=== PATIENT | female | born 1950 | race Caucasian/White ===

== ENCOUNTER 2017-10-05 09:30 | Outpatient (RCR) | payer MEDICARE, OTHER ==
[2015-04-25 14:03] VITALS: Wt 53.9 kg
[2017-09-26 09:56] LABS: PLATELET COUNT, AUTOMATED 232 K/uL (150-450)
[~2017-10-05 09:30] MED LIST: ACE3 PO; AMOX-559 PO; CALC600T63 PO; CEFT2VIA53 IV; CHOL200022 PO; ESOM20CA31 PO; ESOM40CA42 PO; IMAT400PT PO; KET10 PO; MULT1TAB64 PO; OMEP2.5S PO; OXYC-865 PO; PREMPRO PO; VITA-175 PO; [UNRECOGNIZED DRUG - CODE] MM
[2017-10-05 09:35] VITALS: BP 125/75
--- NOTE | 2017-10-05 15:01 | ONCOLOGY FOLLOW UP NOTE ---
EVENT DATE: October 05, 2017 DIAGNOSES 1. 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 2. Osteopenia. 3. Gastroesophageal reflux disease (GERD). 4. Peripheral neuropathy. 5. Sjgren syndrome. 6. Plasma cell dyscrasia. CHIEF COMPLAINT The patient is here today for followup of her ileal gastrointestinal stromal tumor and MGUS. ONCOLOGY HISTORY The patient is a 67-year-old woman. PRESENTATION The patient is here for followup. DIAGNOSTIC EVALUATION CT scan abdomen and pelvis done on February 17, 2011 did reveal a 2.7 cm irregular collection of tissue in the inferior aspect of the left breast. There were also three ovoid soft tissue density masses adjacent to the right internal iliac artery. The largest was 3 cm in diameter. There were two uterine fibroids. PROCEDURE Laparoscopic evaluation and biopsy of the right pelvic lymphadenopathy. It turned out to be an open laparotomy with enterectomy with primary anastomosis done on March 01, 2011. During surgery, a tumor was found in the ileocecal junction right in the mesentery of the small bowel. It was adjacent to the ileum. A lymph node was removed and came back negative for lymphoma. PATHOLOGY Positive for a well circumscribed submucosal mass, 3.5 x 3.7 x 3.0 cm in diameter and the pathology was positive for gastrointestinal stromal tumor. C- kit was strongly positive. Ki-67 was less than 5% of tumor cells positive. So the patient had gastrointestinal stromal tumor of the terminal ileum. STAGING PET CT scan done on March 30, 2011 did not show any evidence of local or systemic metastasis. There was a nodule in the thyroid, 8 mm, with standardized uptake value (SUV) of 7. TREATMENT Gleevec 400 mg daily, started on April 01, 2011. HISTORY OF PRESENT ILLNESS Patient is here today for follow-up of her terminal ileal gastrointestinal stromal tumor and MGUS. Patient is doing fine currently. She is complaining of pain in her knees, ankles and feet. She feels that her legs are tight. She has also tingling and numbness in the hands and her feet are also numb. PAST MEDICAL HISTORY 1. Sjgren syndrome, diagnosed recently after biopsy for dry mouth. 2. Anemia. 3. Peripheral neuropathy. 4. Terminal ileal gastrointestinal tumor, diagnosed recently in February of 2011. 5. Osteopenia. 6. Abnormal left mammogram. Patient with history of microcalcification of the left breast in the past. 7. Gastroesophageal reflux disease (GERD). PAST SURGICAL HISTORY 1. Biopsy of the left breast in October of 1988. 2. Exploratory laparotomy and enterectomy with terminal ileal resection done in February of 2011. 3. 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 SOCIAL HISTORY The patient is . She has two sons and one daughter. 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 She has about three drinks per week. Denies any abuse of tobacco or drugs. FAMILY HISTORY Father had lymphoma at the age of 79. Mother had gallbladder cancer at the age of 77. MEDICATIONS 1. Vitamin B complex one tablet daily. 2. Multivitamin one tablet daily. 3. Gleevec 400 mg daily. 4. Nexium 20 mg daily. 5. Prempro 0.625 mg every other day. 6. Prempro 0.425 mg every other day. ALLERGIES No known drug allergies. REVIEW OF SYSTEMS CONSTITUTIONAL: No appetite or weight change. No fever, chills or sweating. No recent infection. HEENT: Ears: No tinnitus or hearing problem. Nose: No nasal discharge or epistaxis. Throat: No sore throat or mouth ulcers. Eyes: No diplopia or visual changes. RESPIRATORY: No shortness of breath. No cough, expectoration or hemoptysis. CARDIOVASCULAR: No chest pain, orthopnea, or paroxysmal nocturnal dyspnea (PND) . No edema. No palpitations. GASTROINTESTINAL: No nausea or vomiting. No diarrhea or constipation. No change in bowel movements. No heartburn or swallowing difficulties. No abdominal pain. No jaundice. No hematemesis, melena or rectal bleeding. GENITOURINARY: No hematuria or dysuria. MUSCULOSKELETAL: She has pain in the knees, ankles and feet. NEUROLOGICAL: She has tingling and numbness in the hands and numbness in the feet. HEMATOLOGIC/LYMPHATIC: She has mild fatigue. No enlarged lymph nodes. SKIN: No skin rash or lumps. PSYCHIATRIC: No anxiety or depression. PHYSICAL EXAMINATION GENERAL: Looks stable. Well-developed, well-nourished, and in no acute distress. VITAL SIGNS: Blood pressure 125/75, pulse 70 per minute, respirations 16 per minute, temperature 97.2, pulse ox 94% on room air. HEENT: Head: Atraumatic. No sinus tenderness to palpation. Eyes: No icterus or conjunctivitis. Mouth and throat: No oral thrush or mucositis. NECK: Supple. No cervical or supraclavicular lymphadenopathy. LUNGS: Clear to auscultation and percussion bilaterally. HEART: Regular rate and rhythm. No gallops, murmurs, clicks or rubs. ABDOMEN: Soft and lax. No tenderness. No hepatosplenomegaly. No masses. EXTREMITIES: No cyanosis, clubbing or edema. LYMPHATICS: No peripheral lymphadenopathy. NEUROLOGICAL: Conscious, alert and oriented times three. No focal motor or sensory deficits. PSYCHIATRIC: Mood and affect appear normal. SKIN: No skin rash, bruise or purpuric eruption. DIAGNOSTIC DATA CBC showed a white count of 4000, hemoglobin 13.5, hematocrit 38.8, platelets 232,000. Chem panel totally normal except AST 40. ASSESSMENT 1. Terminal ileal gastrointestinal stromal tumor status post enterectomy done March 01, 2011. Final pathology was positive for gastrointestinal stromal tumor. CKIT was strongly positive. Ki-67 was less than 5% positive. PET/CT scan done March 30, 2011 did not show any evidence of systemic or local metastasis. Patient started treatment with Gleevec April 01, 2011. She is in complete remission without any symptoms related to her tumor. I am planning to continue followup. I will see her again in six months with CBC and chem panel. In the meantime we will continue to Gleevec 400 mg daily. 2. 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 [place] free light chain is high at 321, which is up from 190. Her lambda free light chain is low at 0.3 with kappa to lambda free light chain ratio 170, which is on the rise. Her IgG is low at 284, IgA is low at 16, IgM is low at 7. Patient received IVIG for her hypogammaglobulinemia. Her serum protein electrophoresis showed a faint band in the kappa, suggestive of specific immune response or an early monoclonal protein. 3. Left thyroid nodule, hot by PET scan. Patient is followed by fish housekeeper. 4. Osteopenia. 5. Gastroesophageal reflux disease, on treatment. 6. Peripheral neuropathy. 7. Sjogren syndrome. PLAN 1. Continue followup. 2. Patient to return in six months with CBC, chem panel, LDH, uric acid, myeloma profile and I will check serum protein immunoelectrophoresis for IgD and IgE. 3. Patient to contact us for any new concerns or complaints. [facility]
== END 2017-10-06 09:58 | disposition home or self-care (01) ==
LOC: ONC 09:30
PROVIDERS: ATTEND Internal Medicine Hematology
DX: C49.A3 Gastrointestinal stromal tumor of small intestine (principal); D47.2 Monoclonal gammopathy; D80.1 Nonfamilial hypogammaglobulinemia; E04.1 Nontoxic single thyroid nodule; M85.80 Other specified disorders of bone density and structure, unspecified site; K21.9 Gastro-esophageal reflux disease without esophagitis; G62.9 Polyneuropathy, unspecified; M35.00 Sjogren syndrome, unspecified
CPT/HCPCS: 36415; 82040; 82232; 82247; 82310; 82374; 82435; 82565; 82947; 83615; 83883; 84075; 84132; 84155; 84295; 84450; 84460; 84520; 84550; 85025; 86334; 99212

== ENCOUNTER → 2018-02-23 | Outpatient (CLI) | payer MEDICARE, OTHER ==
[2015-04-25 14:03] VITALS: BMI 20.1
[~2018-02-23] MED LIST changes: +CHOL200018 PO; -CHOL200022 PO
--- NOTE | 2018-02-24 14:40 | RADIOLOGY IMAGING REPORT ---
FACILITY: [facility] - [place] PATIENT NAME: Abby Moore : 1950 MR: [id number] V: [id number] EXAM DATE: ORDERING PHYSICIAN: SAMUEL MOTA TECHNOLOGIST: Location: [facility] [place] Patient: Abby Moore : 1950 Visit/Account:[id number] Date of Sevice: 02/23/2018 Technique: ANKLE BRACHIAL INDICES HISTORY: Ankle-brachial indices, neuropathy Comparison studies: None FINDINGS: Ankle brachial indices were obtained Brachial artery Right 142 mmHg Left 140 mmHg Right lower extremity: Dorsalis pedis 139 mmHg Posterior tibial artery 124 mmHg Ankle brachial index: 0.98 Left lower extremity: Dorsalis pedis 136 mmHg Posterior tibial artery 135 mmHg Ankle brachial index: 0.96 IMPRESSION: 1. Normal ankle brachial index. Report Dictated By: Ron Cowan DO at 02/24/2018 2:34 PM Report E-Signed By: Ron Cowan DO at 02/24/2018 2:35 PM WSN:[id number]
== END ==
LOC: US 00:27
PROVIDERS: ATTEND Physician Assistant
DX: G60.3 Idiopathic progressive neuropathy (principal)
CPT/HCPCS: 93922

== ENCOUNTER → 2018-03-14 | Outpatient (CLI) | payer MEDICARE, OTHER ==
[2015-04-25 14:03] VITALS: BMI 20.1
--- NOTE | 2018-03-16 08:24 | RADIOLOGY IMAGING REPORT ---
FACILITY: [facility] PATIENT NAME: WU KANG : [id number] MR: [id number] V: [id number] EXAM DATE: ORDERING PHYSICIAN: SAMUEL MOTA TECHNOLOGIST: Iraida Jimenez PROCEDURE:BILATERAL DIGITAL SCREENING MAMMOGRAM WITH CAD ASSISTED INTERPRETATION & 3D TOMOSYNTHESIS COMPARISON:Prior mammograms dated 03/13/17, 10/27/16, 10/12/15, 10/06/14, 10/03/13, 03/07/12 INDICATIONS:screening FINDINGS: Moderately dense fibroglandular tissue is seen throughout the breasts. The parenchymal pattern has remained stable allowing for difference in mammographic technique & patient positioning. There is no evidence of malignant appearing mass, malignant appearing calcification or other secondary sign of malignancy in either breast. DIAGNOSTIC CATEGORY 1--NEGATIVE. RECOMMENDATIONS: ROUTINE MAMMOGRAM AND CLINICAL EVALUATION. IMPRESSION: BIRADS 1: Negative. No significant abnormality is seen. Dictated by: Colette Alvarado M.D. on 03/14/2018 at 16:47 Transcribed by: UNA on 03/16/2018 at 8:16 Approved by: Colette Alvarado M.D. on 03/16/2018 at 8:23 [facility]
== END ==
LOC: MAMO 00:30
PROVIDERS: ATTEND Physician Assistant
DX: Z12.31 Encounter for screening mammogram for malignant neoplasm of breast (principal)
CPT/HCPCS: 77063; 77067

== ENCOUNTER 2018-04-12 15:20 | Outpatient (RCR) | payer MEDICARE, OTHER ==
[2015-04-25 14:03] VITALS: Wt 56.5 kg
[2018-03-26 09:10] VITALS: BP 130/72
[2018-03-26 09:26] LABS: PLATELET COUNT, AUTOMATED 214 K/uL (150-450)
[2018-04-12 15:22] VITALS: BP 148/77
--- NOTE | 2018-04-12 21:51 | [facility] ONCOLOGY NOTE ---
EVENT DATE: April 12, 2018 DIAGNOSES 1. 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 2. Osteopenia. 3. Gastroesophageal reflux disease (GERD). 4. Peripheral neuropathy. 5. Sjgren syndrome. 6. Plasma cell dyscrasia. CHIEF COMPLAINT Patient is here today for followup of her ileal gastrointestinal stromal tumor and MGUS. ONCOLOGY HISTORY The patient is a 68-year-old woman. PRESENTATION The patient is here for followup. DIAGNOSTIC EVALUATION CT scan abdomen and pelvis done on February 17, 2011, did reveal a 2.7 cm irregular collection of tissue in the inferior aspect of the left breast. There were also three ovoid soft tissue density masses adjacent to the right internal iliac artery. The largest was 3 cm in diameter. There were two uterine fibroids. PROCEDURE Laparoscopic evaluation and biopsy of the right pelvic lymphadenopathy. It turned out to be an open laparotomy with enterectomy with primary anastomosis done on March 01, 2011. During surgery, a tumor was found in the ileocecal junction right in the mesentery of the small bowel. It was adjacent to the ileum. A lymph node was removed and came back negative for lymphoma. PATHOLOGY Positive for a well-circumscribed submucosal mass, 3.5 x 3.7 x 3.0 cm in diameter, and the pathology was positive for gastrointestinal stromal tumor. C- Kit was strongly positive. Ki-67 was less than 5% of tumor cells positive. So, the patient had gastrointestinal stromal tumor of the terminal ileum. STAGING PET/CT scan done on March 30, 2011, did not show any evidence of local or systemic metastasis. There was a nodule in the thyroid, 8 mm, with standardized uptake value (SUV) of 7. TREATMENT Gleevec 400 mg daily, started on April 01, 2011. HISTORY OF PRESENT ILLNESS Patient is here today for followup of her terminal ileal gastrointestinal stromal tumor and MGUS. Patient is doing fine currently. She is complaining of some nasal discharge and cough from her recent upper respiratory tract infection. She has some regular aches in her joints for age. She has also some neuropathy and numbness in her fingers. PAST MEDICAL HISTORY 1. Sjgren syndrome, diagnosed after biopsy for dry mouth. 2. Anemia. 3. Peripheral neuropathy. 4. Terminal ileal gastrointestinal tumor, diagnosed in February 2011. 5. Osteopenia. 6. Abnormal left mammogram. Patient with history of microcalcification of the left breast in the past. 7. Gastroesophageal reflux disease (GERD). PAST SURGICAL HISTORY 1. Biopsy of the left breast in October 1988. 2. Exploratory laparotomy and enterectomy with terminal ileal resection done in February 2011. 3. 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 SOCIAL HISTORY The patient is . She has two sons and one daughter. 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 She has about three drinks per week. Denies any abuse of tobacco or drugs. FAMILY HISTORY Father had lymphoma at the age of 79. Mother had gallbladder cancer at the age of 77. MEDICATIONS 1. Vitamin B complex one tablet daily. 2. Multivitamin one tablet daily. 3. Gleevec 400 mg daily. 4. Nexium 20 mg daily. 5. Prempro 0.625 mg every other day. 6. Prempro 0.425 mg every other day. ALLERGIES No known drug allergies. REVIEW OF SYSTEMS CONSTITUTIONAL: No appetite or weight change. No fever, chills, or sweating. No recent infection. HEENT: Ears: No tinnitus or hearing problem. Nose: She has nasal discharge. No epistaxis. Throat: No sore throat or mouth ulcers. Eyes: No diplopia or visual changes. RESPIRATORY: No shortness of breath. She has a dry cough. No expectoration or hemoptysis. CARDIOVASCULAR: No chest pain, orthopnea, or paroxysmal nocturnal dyspnea (PND). No edema. No palpitations. GASTROINTESTINAL: No nausea or vomiting. No diarrhea or constipation. No change in bowel movements. No heartburn or swallowing difficulties. No abdominal pain. No jaundice. No hematemesis, melena, or rectal bleeding. GENITOURINARY: No hematuria or dysuria. MUSCULOSKELETAL: She has joint aches due to age. NEUROLOGICAL: She has numbness in her fingers. No headaches or convulsions. HEMATOLOGIC/LYMPHATIC: No bleeding or easy bruising. No weakness or fatigue. No enlarged lymph nodes. SKIN: No skin rash or lumps. PSYCHIATRIC: No anxiety or depression. PHYSICAL EXAMINATION GENERAL: Looks stable. Well developed, well nourished, and in no acute distress. VITAL SIGNS: Blood pressure 148/77, pulse 69 per minute, respirations 16 per minute, temperature 98.1, pulse ox 95% on room air. HEENT: Head: Atraumatic. No sinus tenderness to palpation. Eyes: No icterus or conjunctivitis. Mouth and Throat: No oral thrush or mucositis. NECK: Supple. No cervical or supraclavicular lymphadenopathy. LUNGS: Clear to auscultation and percussion bilaterally. HEART: Regular rate and rhythm. No gallops, murmurs, clicks, or rubs. ABDOMEN: Soft and lax. No tenderness. No hepatosplenomegaly. No masses. EXTREMITIES: No cyanosis, clubbing, or edema. LYMPHATICS: No peripheral lymphadenopathy. NEUROLOGICAL: Conscious, alert, and oriented times three. No focal motor or sensory deficits. PSYCHIATRIC: Mood and affect appear normal. SKIN: No skin rash, bruise, or purpuric eruption. DIAGNOSTIC DATA CBC showed white count 3.5, hemoglobin 13.3, hematocrit 38.4, platelets 214,000. Chem panel is totally normal except total protein 6.2. Beta-2 microglobulin is normal at 1.5. IgG level is low at 265, IgA level is low at 16, and IgM level is low at 7. Serum protein immunoelectrophoresis showed a faint band in the kappa, suggestive of specific immune response or an early monoclonal protein. [place] free light chain is 275, which is high, while lambda free light chain is 0.57. The kappa to lambda free light chain ratio is 482.46. ASSESSMENT 1. 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 Final pathology was positive for gastrointestinal stromal tumor. C-Kit was strongly positive. Ki-67 was less than 5% positive. PET/CT scan done March 30, 2011, did not show any evidence of systemic or local metastasis. Patient started treatment with Gleevec April 01, 2011. She is currently in complete remission. She is doing very well and tolerating treatment very well. I am planning to continue Gleevec 400 mg daily, and I will see her again in six months with CBC and chemistry panel at that time. 2. 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 [place] free light chain is high at 275, which is down from her last visit, which was 321. Her lambda free light chain is 0.57, and the kappa to lambda free light chain ratio is 482.46. Her IgG level is 265, IgA 16, and IgM 7, nearly stable result. She received IVIG for her hypogammaglobulinemia. I am planning to continue the treatment and continue to monitor her serum protein immunoelectrophoresis and free light chain assay every six months. 3. Left thyroid nodule, hot by PET scan. Patient is followed by heel stiffener. 4. Osteopenia. 5. Gastroesophageal reflux disease. 6. Peripheral neuropathy. 7. Sjogren syndrome. PLAN 1. Continue followup. 2. Patient to return in six months with CBC, chem panel, LDH, uric acid, and myeloma profile. 3. Patient to contact us for any new concern or complaints. [facility]
== END 2018-04-20 16:06 | disposition home or self-care (01) ==
LOC: ONC 15:20
PROVIDERS: ATTEND Internal Medicine Hematology
DX: Z08 Encounter for follow-up examination after completed treatment for malignant neoplasm (principal); D47.2 Monoclonal gammopathy; D80.1 Nonfamilial hypogammaglobulinemia; E04.1 Nontoxic single thyroid nodule; M85.80 Other specified disorders of bone density and structure, unspecified site; K21.9 Gastro-esophageal reflux disease without esophagitis; G62.9 Polyneuropathy, unspecified; M35.00 Sjogren syndrome, unspecified; R53.83 Other fatigue; Z79.899 Other long term (current) drug therapy; Z85.09 Personal history of malignant neoplasm of other digestive organs
CPT/HCPCS: 36415; 82232; 83615; 83883; 84550; 85025; 86334; G0463; 82040; 82247; 82310; 82374; 82435; 82565; 82947; 84075; 84132; 84155; 84295; 84450; 84460; 84520; 99212

== ENCOUNTER 2018-10-11 10:31 | Outpatient (RCR) | payer MEDICARE, OTHER ==
[2015-04-25 14:03] VITALS: Wt 54.7 kg
[2018-10-04 11:03] VITALS: BP 135/77
[2018-10-04 11:17] LABS: PLATELET COUNT, AUTOMATED 204 K/uL (150-450)
[2018-10-11 10:32] VITALS: BP 124/77
--- NOTE | 2018-10-11 13:38 | [facility] ONCOLOGY NOTE ---
EVENT DATE: October 11, 2018 DIAGNOSES 1. 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 2. Osteopenia. 3. Gastroesophageal reflux disease (GERD). 4. Peripheral neuropathy. 5. Sjgren syndrome. 6. Plasma cell dyscrasia. CHIEF COMPLAINT Patient is here today for followup of her ileal gastrointestinal stromal tumor and MGUS. ONCOLOGY HISTORY The patient is a 68-year-old woman. PRESENTATION The patient is here for followup. DIAGNOSTIC EVALUATION CT scan abdomen and pelvis done on February 17, 2011, did reveal a 2.7 cm irregular collection of tissue in the inferior aspect of the left breast. There were also three ovoid soft tissue density masses adjacent to the right internal iliac artery. The largest was 3 cm in diameter. There were two uterine fibroids. PROCEDURE Laparoscopic evaluation and biopsy of the right pelvic lymphadenopathy. It turned out to be an open laparotomy with enterectomy with primary anastomosis done on March 01, 2011. During surgery, a tumor was found in the ileocecal junction right in the mesentery of the small bowel. It was adjacent to the ileum. A lymph node was removed and came back negative for lymphoma. PATHOLOGY Positive for a well-circumscribed submucosal mass, 3.5 x 3.7 x 3.0 cm in diameter, and the pathology was positive for gastrointestinal stromal tumor. C- Kit was strongly positive. Ki-67 was less than 5% of tumor cells positive. So, the patient had gastrointestinal stromal tumor of the terminal ileum. STAGING PET/CT scan done on March 30, 2011, did not show any evidence of local or systemic metastasis. There was a nodule in the thyroid, 8 mm, with standardized uptake value (SUV) of 7. TREATMENT Gleevec 400 mg daily, started on April 01, 2011. HISTORY OF PRESENT ILLNESS Patient is here today for followup of her terminal ileal gastrointestinal stromal tumor and MGUS. She is doing fine currently except for some dry cough from possible allergies. She has also pain in her joints. She is complaining of worsening neuropathy, especially in the hands more than the feet lately. Other than that, she is stable. PAST MEDICAL HISTORY 1. Sjgren syndrome, diagnosed after biopsy for dry mouth. 2. Anemia. 3. Peripheral neuropathy. 4. Terminal ileal gastrointestinal tumor, diagnosed in February 2011. 5. Osteopenia. 6. Abnormal left mammogram. Patient with history of microcalcification of the left breast in the past. 7. Gastroesophageal reflux disease (GERD). PAST SURGICAL HISTORY 1. Biopsy of the left breast in October 1988. 2. Exploratory laparotomy and enterectomy with terminal ileal resection done in February 2011. 3. 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 SOCIAL HISTORY The patient is . She has two sons and one daughter. 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 She has about three drinks per week. Denies any abuse of tobacco or drugs. FAMILY HISTORY Father had lymphoma at the age of 79. Mother had gallbladder cancer at the age of 77. MEDICATIONS 1. Vitamin B complex one tablet daily. 2. Multivitamin one tablet daily. 3. Gleevec 400 mg daily. 4. Nexium 20 mg daily. 5. Prempro 0.625 mg every other day. 6. Prempro 0.425 mg every other day. ALLERGIES No known drug allergies. REVIEW OF SYSTEMS CONSTITUTIONAL: No appetite or weight change. No fever, chills, or sweating. No recent infection. HEENT: Ears: No tinnitus or hearing problem. Nose: She has nasal discharge. No epistaxis. Throat: No sore throat or mouth ulcers. Eyes: No diplopia or visual changes. RESPIRATORY: Patient has dry cough. CARDIOVASCULAR: No chest pain, orthopnea, or paroxysmal nocturnal dyspnea (PND). No edema. No palpitations. GASTROINTESTINAL: No nausea or vomiting. No diarrhea or constipation. No change in bowel movements. No heartburn or swallowing difficulties. No abdominal pain. No jaundice. No hematemesis, melena, or rectal bleeding. GENITOURINARY: No hematuria or dysuria. MUSCULOSKELETAL: She has pain in her joints. NEUROLOGICAL: She has worsening neuropathy, especially in the fingers more than the feet. HEMATOLOGIC/LYMPHATIC: No bleeding or easy bruising. No weakness or fatigue. No enlarged lymph nodes. SKIN: No skin rash or lumps. PSYCHIATRIC: No anxiety or depression. PHYSICAL EXAMINATION GENERAL: Looks stable. Well developed, well nourished, and in no acute distress. VITAL SIGNS: Blood pressure 124/77, pulse 67 per minute, respirations 16 per minute, temperature 98.6, pulse ox 95% on room air. HEENT: Head: Atraumatic. No sinus tenderness to palpation. Eyes: No icterus or conjunctivitis. Mouth and Throat: No oral thrush or mucositis. NECK: Supple. No cervical or supraclavicular lymphadenopathy. LUNGS: Clear to auscultation and percussion bilaterally. HEART: Regular rate and rhythm. No gallops, murmurs, clicks, or rubs. ABDOMEN: Soft and lax. No tenderness. No hepatosplenomegaly. No masses. EXTREMITIES: No cyanosis, clubbing, or edema. LYMPHATICS: No peripheral lymphadenopathy. NEUROLOGICAL: Conscious, alert, and oriented times three. No focal motor or sensory deficits. PSYCHIATRIC: Mood and affect appear normal. SKIN: No skin rash, bruise, or purpuric eruption. DIAGNOSTIC DATA CBC showed white count 3.1, hemoglobin 11.4, hematocrit 33.7, platelets 204,000. Chem panel is totally normal except potassium 3.4, AST 60, LDH 796 and total protein 5.9. Beta-2 microglobulin is 1.6. [place] free light chain is 319. Lambda free light chain is 0.22 and kappa to lambda free light chain ratio is 1,450. IgG level is low at 257, IgA is low at 17 and IgM is low at 5. Serum protein immunoelectrophoresis showed a faint band in the kappa, suggestive of a specific immune response or any early monoclonal protein with an additional very faint band in IgA. ASSESSMENT 1. 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 Final pathology was positive for gastrointestinal stromal tumor. C-Kit was strongly positive. Ki-67 was less than 5% positive. PET/CT scan done March 30, 2011, did not show any evidence of systemic or local metastasis. Patient started treatment with Gleevec April 01, 2011. She is currently in complete remission, doing very well. I am planning to continue Gleevec 400 mg daily. I will see her again in six months with CBC and chemistry panel at that time. 2. 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 [place] free light chain was high at 275 and before it was 321. Currently, the kappa free light chain level is 319, which is nearly stable. Lambda free light chain actually was low at 0.22. That is why the kappa to lambda free light chain ratio was very high at 1,450. She has hypogammaglobulinemia and all her immunoglobulins are low. The IgG was 257, IgA 17 and IgM 5. I am planning to continue followup. For her hypogammaglobulinemia, patient received IVIG. I am planning to see her again in six months with another myeloma profile at that time. 3. Worsening neuropathy, especially in the fingers more than the feet. Could be due to her MGUS. I am planning to start Neurontin 300 mg three times daily. 3. Left thyroid nodule by PET scan. She is followed by mechanic sound technician. 4. Osteopenia. 5. Gastroesophageal reflux disease. 6. Peripheral neuropathy. 7. Sjogren syndrome. PLAN 1. Continue followup. 2. Patient to return in six months with CBC, chem panel, LDH, uric acid and myeloma profile. 3. Neurontin 300 mg three times daily. 4. Patient to contact us for any new concerns or complaints. MTDD
== END 2018-10-17 15:43 | disposition home or self-care (01) ==
LOC: ONC 10:31
PROVIDERS: ATTEND Internal Medicine Hematology
DX: C49.A3 Gastrointestinal stromal tumor of small intestine (principal); Z79.899 Other long term (current) drug therapy; D47.2 Monoclonal gammopathy; D80.1 Nonfamilial hypogammaglobulinemia; G62.9 Polyneuropathy, unspecified; E04.1 Nontoxic single thyroid nodule; M85.80 Other specified disorders of bone density and structure, unspecified site; K21.9 Gastro-esophageal reflux disease without esophagitis; M35.00 Sjogren syndrome, unspecified
CPT/HCPCS: 36415; 82232; 83615; 83883; 84550; 85025; 86334; G0463; 82040; 82247; 82310; 82374; 82435; 82565; 82947; 84075; 84132; 84155; 84295; 84450; 84460; 84520; 99212

== ENCOUNTER → 2018-10-31 | Outpatient (REF) | payer MEDICARE, OTHER ==
[2015-04-25 14:03] VITALS: BMI 20.1
== END ==
LOC: ZZSENDIN 14:36
PROVIDERS: ATTEND Physician Assistant
DX: N10 Acute pyelonephritis (principal); B96.20 Unspecified Escherichia coli [E. coli] as the cause of diseases classified elsewhere
CPT/HCPCS: 87077; 87088; 87186